=== PATIENT | male | born 1975 | race Caucasian/White ===

== ENCOUNTER 2017-11-28 04:59 | Emergency (ER) | payer BC, OTHER ==
[~2017-11-28] VITALS: Ht 177.8 cm; Wt 97.0 kg
[~2017-11-28 04:59] MED LIST: Z.0.NO CURRENT MEDS
[2017-11-28 05:02] VITALS: BP 148/92; PULSE 96; RESP 24; TEMP 97.7; O2SAT 98
[2017-11-28 05:12] VITALS: BP 137/90; PULSE 88; RESP 18; O2SAT 99
[2017-11-28] MEDS ORDERED: SODIUM CHLOR 0.9% 1000 ML INJ 1,000 ML IV ONE ×2 (05:12→07:00)
[2017-11-28] MEDS ORDERED: ONDANSETRON HCL 4 MG/2 ML VIAL IV PUSH ONE (05:15)
[2017-11-28] MEDS ORDERED: SODIUM CHLORIDE 0.9% FLUSH 10 ML FLUSH IVF PRN (05:15)
[2017-11-28] MEDS ORDERED: KETOROLAC TROMETHAMINE 30 MG/ML (IVP) VIAL IV PUSH ONE (05:15)
--- NOTE | 2017-11-28 05:17 | PD ---
HPI Chief Complaint: Abdominal Pain Time Seen by Provider: 05:12 Travel History International Travel<30 days: No Contact w/Intl Traveler<30days: No Traveled to known affect area: No History of Present Illness HPI 42-year-old male presents to the emergency department by private transportation for complaint of sudden onset right lower quadrant and left flank pain since 1 AM. Patient had nausea without vomiting. Poor oral intake. No report of chest pain or sweats. Patient notes that symptoms are improved by sitting upright and worsened by resting supine. Patient states pain makes him feel short of breath. Patient rates pain as severe. Patient does have history of diet-controlled diabetes mild dyslipidemia and hypertension. Patient states his last stress test which was a nuclear stress test was negative. Patient denies tobacco use. Patient states he felt completely well yesterday and last evening before sudden onset of symptoms at 1 AM. Patient is taking no medications for his symptoms. Patient denies history of kidney stones. No report of dysuria frequency urgency or gross hematuria. PFSH Past Medical History Narrative Medical Hypertension dyslipidemia diabetes tobacco use pilonidal cyst excision; nursing notes reviewed High Cholesterol: Yes Diabetes: Yes Patient Takes Glucophage: No Diminished Hearing: No Genitourinary: Yes (PIONIDAL CYSTS X 2.) Hypertension: Yes Immunizations Current: Yes Past Surgical History Oral Surgery: Yes Other Surgery: Yes (PILONIDAL CYST REMOVAL X2) Social History Alcohol Use: No Tobacco Use: Yes (1 PPD) Substance Use: No Allergies-Medications (Allergen,Severity, Reaction): Coded Allergies: No Known Allergies (Verified Allergy, Mild, 11/28/17) Reported Meds & Prescriptions Reported Meds & Active Scripts Active Ibuprofen 800 Mg Tab 800 Mg PO Q8H PRN Zofran Odt (Ondansetron Odt) 4 Mg Tab 4 Mg SL Q6HR PRN Percocet (Oxycodone-Acetaminophen) 5-325 mg Tab 1 Tab PO Q6H PRN Flomax (Tamsulosin HCl) 0.4 Mg Cap 0.4 Mg PO HS Reported No Current Meds (Miscellaneous Medication) Misc Review of Systems Except as stated in HPI: all other systems reviewed are Neg General / Constitutional: No: Fever, Chills HENT: No: Congestion Cardiovascular: No: Chest Pain or Discomfort Respiratory: Positive: Shortness of Breath Gastrointestinal: Positive: Nausea, Abdominal Pain (RLQ), No: Vomiting, Diarrhea Genitourinary: Positive: Flank Pain, No: Urgency, Frequency, Dysuria, Hematuria Musculoskeletal: No: Myalgias, Arthralgias Skin: No Rash Neurologic: No: Weakness Psychiatric: No: Anxiety Hematologic/Lymphatic: No: Lymph Node Enlargement Physical Exam Narrative GENERAL: Well-developed well-nourished male in obvious discomfort with no respiratory distress SKIN: Warm and dry. HEAD: Normocephalic. EYES: No scleral icterus. No injection or drainage. NECK: Supple, trachea midline. No JVD or lymphadenopathy. CARDIOVASCULAR: Regular rate and rhythm without murmurs, gallops, or rubs. RESPIRATORY: Breath sounds equal bilaterally. No accessory muscle use. GASTROINTESTINAL: Abdomen soft, non-tender, nondistended. MUSCULOSKELETAL: No cyanosis, or edema. BACK: Nontender without obvious deformity. No CVA tenderness. Data Data Last Documented VS Vital Signs Date Time Temp Pulse Resp B/P (MAP) Pulse Ox O2 Delivery O2 Flow Rate FiO2 11/28/17 05:12 88 18 137/90 (106) 99 Room Air 11/28/17 05:02 97.7 Orders Orders Complete Blood Count With Diff (11/28/17 05:12) Comprehensive Metabolic Panel (11/28/17 05:12) Urinalysis - C+S If Indicated (11/28/17 05:12) Ct Abd/Pel W/O Iv Contrast (11/28/17 05:12) Ecg Monitoring (11/28/17 05:12) Iv Access Insert/Monitor (11/28/17 05:12) Ketorolac Inj (Toradol Inj) (11/28/17 05:15) Ondansetron Inj (Zofran Inj) (11/28/17 05:15) Sodium Chloride 0.9% Flush (Ns Flush) (11/28/17 05:15) Sodium Chlor 0.9% 1000 Ml Inj (Ns 1000 M (11/28/17 05:12) Sodium Chlor 0.9% 1000 Ml Inj (Ns 1000 M (11/28/17 07:00) Ed Discharge Order (11/28/17 08:07) Labs Laboratory Tests Test 11/28/17 05:20 11/28/17 06:50 White Blood Count 11.1 TH/MM3 Red Blood Count 5.43 MIL/MM3 Hemoglobin 17.1 GM/DL Hematocrit 47.0 % Mean Corpuscular Volume 86.7 FL Mean Corpuscular Hemoglobin 31.4 PG Mean Corpuscular Hemoglobin Concent 36.2 % Red Cell Distribution Width 13.9 % Platelet Count 187 TH/MM3 Mean Platelet Volume 9.0 FL Neutrophils (%) (Auto) 71.5 % Lymphocytes (%) (Auto) 20.3 % Monocytes (%) (Auto) 5.7 % Eosinophils (%) (Auto) 1.3 % Basophils (%) (Auto) 1.2 % Neutrophils # (Auto) 7.9 TH/MM3 Lymphocytes # (Auto) 2.2 TH/MM3 Monocytes # (Auto) 0.6 TH/MM3 Eosinophils # (Auto) 0.1 TH/MM3 Basophils # (Auto) 0.1 TH/MM3 CBC Comment AUTO DIFF Differential Comment AUTO DIFF CONFIRMED Blood Urea Nitrogen 17 MG/DL Creatinine 1.12 MG/DL Random Glucose 139 MG/DL Total Protein 7.1 GM/DL Albumin 4.0 GM/DL Calcium Level 8.7 MG/DL Alkaline Phosphatase 78 U/L Aspartate Amino Transf (AST/SGOT) 38 U/L Alanine Aminotransferase (ALT/SGPT) 62 U/L Total Bilirubin 0.6 MG/DL Sodium Level 137 MEQ/L Potassium Level 3.7 MEQ/L Chloride Level 106 MEQ/L Carbon Dioxide Level 16.8 MEQ/L Anion Gap 14 MEQ/L Estimat Glomerular Filtration Rate 72 ML/MIN Urine Color LIGHT-YELLOW Urine Turbidity CLEAR Urine pH 7.0 Urine Specific [place] 1.007 Urine Protein NEG mg/dL Urine Glucose (UA) NEG mg/dL Urine Ketones TRACE mg/dL Urine Occult Blood MOD Urine Nitrite NEG Urine Bilirubin NEG Urine Urobilinogen LESS THAN 2.0 MG/DL Urine Leukocyte Esterase NEG Urine RBC 3 /hpf Urine WBC LESS THAN 1 /hpf Urine Squamous Epithelial Cells <1 /hpf Urine Bacteria RARE /hpf Urine Mucus FEW /lpf Microscopic Urinalysis Comment CULT NOT INDICATED MDM Medical Decision Making Medical Screen Exam Complete: Yes Emergency Medical Condition: Yes Medical Record Reviewed: Yes Interpretation(s) CT: FINDINGS: There is a right-sided obstructive uropathy with mild right hydronephrosis and ureteral dilatation above a tiny 1 mm calcification at the right ureterovesical junction. No left-sided calculi. Lung bases clear. No acute findings in the liver, spleen, adrenals or pancreas. No calcified gallstones. No bowel obstruction. No free fluid or free air. No adenopathy. CONCLUSION: 1. Right-sided obstructive uropathy above a tiny 1 mm calcification at the right ureterovesical junction. Gilmar Ruggiero MD on November 28, 2017 at 5:40 Board Certified Radiologist. This report was verified electronically. UA: positive blood noted; cx not indicated Differential Diagnosis Renal colic, obstructive uropathy, atypical appendicitis, cholecystitis, abdominal aortic aneurysm Narrative Course Patient placed on school lunch monitor IV access obtained specimen collected and sent for resulting patient administered Zofran 4 mg IV and Toradol [address] abdomen and pelvis identifies a 1 mm distal UVJ stone with mild ureteral dilatation Urinalysis is grossly within normal limits except for blood culture not indicated Patient is stable for outpatient management and follow-up with urology patient is provided discharge prescriptions and encouraged to strain urine and increase fluid hydration. Diagnosis Primary Impression: Ureterolithiasis Additional Impression: Obstructive uropathy Referrals: Urologist Patient Instructions: General Instructions Additional Instructions: Strain urine Increase fluid hydration Take medications as prescribed Follow-up with urologist Return to the emergency department for any concerns or change in condition Med/Other Pt SpecificInfo: Prescription(s) given Scripts Ibuprofen (Ibuprofen) 800 Mg Tab 800 MG PO Q8H Y for PAIN GREATER THAN 5, #12 TAB 0 Refills Prov: Roxanne Conte MD 11/28/17 Ondansetron Odt (Zofran Odt) 4 Mg Tab 4 MG SL Q6HR Y for Nausea/Vomiting, #10 TAB 0 Refills Prov: Roxanne Conte MD 11/28/17 Oxycodone-Acetaminophen (Percocet) 5-325 mg Tab 1 TAB PO Q6H Y for PAIN, #12 TAB 0 Refills Prov: Roxanne Conte MD 11/28/17 Tamsulosin (Flomax) 0.4 Mg Cap 0.4 MG PO HS for Manage Prostate Problems, #10 CAP 0 Refills Prov: Roxanne Conte MD 11/28/17 Disposition: 01 DISCHARGE HOME Condition: Stable Roxanne Conte MD Nov 28, 2017 05:16
[2017-11-28 05:44] LABS: AUTOMATED NEUTROPHIL # 7.9 TH/MM3 (1.8-7.7); BASOPHIL # 0.1 TH/MM3 (0-0.2); BASOPHIL % 1.2 % (0.0-2.0); EOSINOPHIL # 0.1 TH/MM3 (0-0.4); EOSINOPHIL % 1.3 % (0.0-4.0); HEMOGLOBIN 17.1 GM/DL (13.0-17.0); LYMPH % 20.3 % (9.0-44.0); LYMPHOCYTE # 2.2 TH/MM3 (1.0-4.8); MEAN CELL VOLUME 86.7 FL (80.0-100.0); MEAN CORPUSCULAR HEMOGLOBIN 31.4 PG (27.0-34.0); MONO % 5.7 % (0.0-8.0); MONOCYTE # 0.6 TH/MM3 (0-0.9); NEUT % 71.5 % (16.0-70.0); PLATELET COUNT 187 TH/MM3 (150-450); RED BLOOD COUNT 5.43 MIL/MM3 (4.50-5.90); RED CELL DISTRIBUTION WIDTH 13.9 % (11.6-17.2); WHITE BLOOD COUNT 11.1 TH/MM3 (4.0-11.0)
--- NOTE | 2017-11-28 05:45 | RADRPT ---
EXAM DATE/TIME: 11/28/2017 05:28 [facility] COMPARISON: No previous studies available for comparison. INDICATIONS : Right FLank pain. ORAL CONTRAST: No oral contrast ingested. RADIATION DOSE: 11.82 CTDIvol (mGy) MEDICAL HISTORY : None SURGICAL HISTORY : None. ENCOUNTER: Initial ACUITY: 1 day PAIN SCALE: 5/10 LOCATION: Right flank TECHNIQUE: Volumetric scanning of the abdomen and pelvis was performed. Using automated exposure control and ad justment of the mA and/or kV according to patient size, radiation dose was kept as low as reasonably achievable to obtain optimal diagnostic quality images. DICOM format image data is available electro nically for review and comparison. FINDINGS: There is a right-sided obstructive uropathy with mild right hydronephrosis and ureteral dilatation ab ove a tiny 1 mm calcification at the right ureterovesical junction. No left-sided calculi. Lung bases clear. No acute findings in the liver, spleen, adrenals or pancreas. No calcified gallston es. No bowel obstruction. No free fluid or free air. No adenopathy. CONCLUSION: 1. Right-sided obstructive uropathy above a tiny 1 mm calcification at the right ureterovesical junct ion. Gilmar Ruggiero MD on November 28, 2017 at 5:40 Board Certified Radiologist. This report was verified electronically.
[2017-11-28 05:52] LABS: MEAN CORPUSCULAR HGB CONC 36.2 % (32.0-36.0)
[2017-11-28] MEDS ORDERED: TAMS5CAP PO (06:07)
[2017-11-28] MEDS ORDERED: IBUP1TAB7 PO (06:07)
[2017-11-28] MEDS ORDERED: PERC5TAB12 PO ×2 (06:07→16:36)
[2017-11-28] MEDS ORDERED: ZOFR4TAB3 SL (06:07)
[2017-11-28 06:12] LABS: ALKALINE PHOSPHATASE 78 U/L (45-117); TOTAL BILIRUBIN ADULT 0.6 MG/DL (0.2-1.0); TOTAL PROTEIN 7.1 GM/DL (6.4-8.2)
[2017-11-28 06:15] LABS: AST (GOT) 38 U/L (15-37); BICARBONATE 16.8 MEQ/L (21.0-32.0); BLOOD UREA NITROGEN 17 MG/DL (7-18); CALCIUM 8.7 MG/DL (8.5-10.1); CHLORIDE 106 MEQ/L (98-107); CREATININE 1.12 MG/DL (0.60-1.30); GLOMERULAR FILTRATION RATE 72 ML/MIN (>89); GLUCOSE,RANDOM 139 MG/DL (74-106); SODIUM (NA) 137 MEQ/L (136-145)
[2017-11-28 07:23] LABS: ALT (GPT) 62 U/L (12-78)
[2017-11-28 07:55] LABS: BACTERIA, URINE RARE /hpf; BILIRUBIN, URINE NEG (NEG); BLOOD, URINE MOD (NEG); GLUCOSE,URINE NEG (NEG); KETONE, URINE TRACE mg/dL (NEG); MUCUS URINE FEW /lpf (OCC); NITRITE,URINE NEG (NEG); SQUAMOUS EPITHELIAL CELL URINE <1 /hpf (0-5); URINE COLOR LIGHT-YELLOW (YELLW/STRAW); URINE LEUKOCYTE ESTERASE NEG (NEG)
== END 2017-11-28 08:20 | disposition home or self-care (01) ==
LOC: NEPC 04:59
DX: N20.1 Calculus of ureter (principal); N13.9 Obstructive and reflux uropathy, unspecified; R06.02 Shortness of breath; R11.0 Nausea; E11.9 Type 2 diabetes mellitus without complications; E78.5 Hyperlipidemia, unspecified; I10 Essential (primary) hypertension; E78.00 Pure hypercholesterolemia, unspecified; F17.200 Nicotine dependence, unspecified, uncomplicated
CPT/HCPCS: 74176; 80053; 81001; 85025; 96361; 96374; 96375; 99284; J1885; J2405; J7030